=== PATIENT | female | born 1950 | race Caucasian/White ===

== ENCOUNTER 2018-03-10 06:04 | Day surgery (SDC) | payer MEDICARE, OTHER ==
[~2018-03-10] VITALS: Ht 157.5 cm; Wt 54.0 kg
[2018-03-10] MEDS ORDERED: BENZOCAINE 20% 50 MCG/SPRAY 57 GM TP ONE (06:05)
[2018-03-10] MEDS ORDERED: LIDOCAINE 2% 30 ML JELLY TP ONE (06:05)
[2018-03-10] MEDS ORDERED: LIDOCAINE 4% 50 ML SOLUTION TP ONE (06:05)
[2018-03-10] MEDS ORDERED: SODIUM CHLORIDE 0.9% 1,000 ML IV ONE (07:00)
[2018-03-10] MEDS ORDERED: FentaNYL CITRATE-PF 100 MCG/2 ML VIAL ONE (07:26)
[2018-03-10] MEDS ORDERED: MIDAZOLAM HCL 2 MG/2 ML VIAL ONE (07:26)
[2018-03-10] MEDS ORDERED: MethylPREDNISolone SOD SUCC 125 MG/2 ML VIAL IVP ONE (08:15)
[2018-03-10] MEDS ORDERED: OXYGEN THERAPY IH SCH (20:00)
== END 2018-03-10 09:50 | disposition home or self-care (01) ==
LOC: EDBD 06:04 → SURGERY 06:04
PROVIDERS: ATTEND Internal Medicine Critical Care Medicine
DX: J38.4 Edema of larynx (principal); B37.0 Candidal stomatitis; J84.111 Idiopathic interstitial pneumonia, not otherwise specified; J98.09 Other diseases of bronchus, not elsewhere classified; Z88.1 Allergy status to other antibiotic agents; Z98.890 Other specified postprocedural states
CPT/HCPCS: 31623; 31624; 71045; 87015; 87070; 87205; 87206; 87220; 88108; 88312; 94640; J2250; J2930; J3010

== ENCOUNTER 2019-08-06 06:06 | Day surgery (SDC) | payer OTHER ==
[~2019-08-06] VITALS: Ht 154.9 cm; Wt 55.0 kg
[~2019-08-06 06:06] MED LIST: SODIUM CHLORIDE 0.9% 1,000 ML ONE
[2019-08-06] MEDS ORDERED: ALBUTEROL SULFATE 2.5 MG/0.5 ML NEB SOLUTION NEB ONE (06:07)
[2019-08-06] MEDS ORDERED: LIDOCAINE 2% 30 ML JELLY TP ONE (06:07)
[2019-08-06] MEDS ORDERED: LIDOCAINE 4% 50 ML SOLUTION TP ONE (06:07)
[2019-08-06] MEDS ORDERED: BENZOCAINE 20% 50 MCG/SPRAY 57 GM TP ONE (06:07)
[2019-08-06] MEDS ORDERED: SODIUM CHLORIDE 0.9% 1,000 ML IV ONE (06:30)
[2019-08-06] MEDS ORDERED: FentaNYL CITRATE-PF 100 MCG/2 ML VIAL ONE (07:04)
[2019-08-06] MEDS ORDERED: MIDAZOLAM HCL 2 MG/2 ML VIAL ONE (07:04)
[2019-08-06] MEDS ORDERED: BENZ200C53 PO (07:27)
[2019-08-06] MEDS ORDERED: FLUT16H NASAL (07:27)
[2019-08-06] MEDS ORDERED: MELO-107 PO (07:27)
[2019-08-06] MEDS ORDERED: GABA-531 PO (07:27)
[2019-08-06] MEDS ORDERED: MECL25TA31 PO (07:27)
[2019-08-06] MEDS ORDERED: ONDA-104 PO (07:27)
[2019-08-06] MEDS ORDERED: DOXY100C PO (07:27)
[2019-08-06] MEDS ORDERED: DIPH12.55 PO (07:27)
[2019-08-06] MEDS ORDERED: ESCI5SOL2 PO (07:27)
[2019-08-06] MEDS ORDERED: FAMO20 PO (07:27)
[2019-08-06] MEDS ORDERED: MethylPREDNISolone SOD SUCC 125 MG/2 ML VIAL IVP ONE (09:00)
[2019-08-06] MEDS ORDERED: MethylPREDNISolone SOD SUCC 125 MG/2 ML VIAL ONE (09:49)
[2019-08-06] MEDS ORDERED: OXYGEN THERAPY IH SCH (20:00)
== END 2019-08-06 11:45 | disposition home or self-care (01) ==
LOC: SURGERY 06:06
PROVIDERS: ATTEND Internal Medicine Critical Care Medicine
DX: R05 Cough (principal); R91.1 Solitary pulmonary nodule; J34.89 Other specified disorders of nose and nasal sinuses; J98.8 Other specified respiratory disorders; J39.8 Other specified diseases of upper respiratory tract; J38.4 Edema of larynx; B37.0 Candidal stomatitis; J98.09 Other diseases of bronchus, not elsewhere classified; M19.90 Unspecified osteoarthritis, unspecified site; Z98.890 Other specified postprocedural states; Z88.1 Allergy status to other antibiotic agents
CPT/HCPCS: 31623; 31624; 71045; 87070; 87101; 87206; 87220; J2250; J2930; J3010; J7030; 87015; 87205; 88108; 88312

== ENCOUNTER → 2025-03-04 | Day surgery (SDC) | payer OTHER ==
[~2025-03-04] VITALS: Ht 157.5 cm; Wt 52.7 kg
[~2025-03-04] MED LIST changes: +ALBUTEROL SULFATE 2.5 MG/0.5 ML NEB SOLUTION NEB ONE; +BENZ200C53 PO; +BENZOCAINE 20% 50 MCG/SPRAY 57 GM ONE; +CLOP75TA32 PO; +DIPH12.55 PO; +DOXY100C PO; +ESCI5SOL2 PO; +FAMO20 PO; +FLUT16SP NASAL; +FentaNYL CITRATE PF 100 MCG/2 ML VIAL ONE; +GABA-1181 PO; +LIDOCAINE 2% 11 ML JELLY ONE; +LIDOCAINE 4% 50 ML SOLUTION ONE; +MECL-244 PO; +MELO-107 PO; +MIDAZOLAM HCL 2 MG/2 ML VIAL ONE; +ONDA-104 PO
[2025-03-04] MEDS: SODIUM CHLORIDE 0.9% 1,000 ML IV ONE (08:01)
[2025-03-04 08:41] LABS: GLUCOMETER DEV NAME(LOC) SDS.; GLUCOSE,POINT OF CARE 115 MG/DL (70-110)
[2025-03-04 10:00] VITALS: PULSE 73; RESP 16; O2SAT 100
== END | disposition home or self-care (01) ==
LOC: SURGERY 06:27
PROVIDERS: ATTEND Internal Medicine Critical Care Medicine
DX: R05.3 Chronic cough (principal); R49.0 Dysphonia; R04.2 Hemoptysis; R06.1 Stridor; J47.9 Bronchiectasis, uncomplicated; R91.8 Other nonspecific abnormal finding of lung field; E11.9 Type 2 diabetes mellitus without complications; J45.909 Unspecified asthma, uncomplicated; Z98.890 Other specified postprocedural states; Z88.0 Allergy status to penicillin
CPT/HCPCS: 31623; 82962; 87206; 87101; 87220; 87070; 31624; 94640; 71045; 87015; J3010; J2250; J2919; J7030; 87186; 88108; J7613; Z7610